=== PATIENT | female | born 1995 | race Caucasian/White ===

== ENCOUNTER 2020-05-07 16:15 | Emergency (ER) | payer SELFPAY ==
[~2020-05-07] VITALS: Ht 165.1 cm; Wt 61.7 kg
[2020-05-07 16:56] LABS: Basophils # (auto) 0 10 ^3/uL (0-0.2); Basophils % (auto) 0.4 % (0.0-2.0); Eosinophils # (auto) 0.1 10 ^3/uL (0-0.8); Eosinophils % (auto) 1.7 % (0.0-7.0); Hematocrit 35.2 % (36.0-46.0); Hemoglobin 11.3 g/dL (12.2-16.2); Lymphocytes % (auto) 27.5 % (10.0-50.0); Mean Corpuscular Hemoglobin 25.7 pg (28.0-32.0); Mean Corpuscular Hgb Conc. 32.1 g/dL (32.0-36.0); Monocytes # (auto) 0.5 10 ^3/uL (0-1.3); Monocytes % (auto) 6.2 % (0.0-12.0); Neutrophils # (auto) 4.8 10 ^3/uL (1.6-8.6); Neutrophils % (auto) 64.2 % (37.0-80.0); Nucleated Red Blood Cells % 0.1 %; Platelet Count (auto) 263 10^3/uL (140-450); White Blood Cell 7.4 10^3/uL (4.4-10.8)
[2020-05-07 21:28] LABS: Urine Bacteria FEW /hpf (None Seen); Urine Blood 3+ /uL (Negative); Urine Mucus FEW (None Seen); Urine Specific Gravity 1.009 (1.001-1.035); Urine Sperm PRESENT /hpf (None Seen); Urine WBC 55 /hpf (0 - 5); Urine WBC Clumps PRESENT /hpf (None Seen)
[2020-05-07 22:46] VITALS: BP 122/71
== END 2020-05-07 22:47 | disposition home or self-care (01) ==
LOC: ER 16:15
DX: O20.0 Threatened abortion (principal)
CPT/HCPCS: 36415; 76801; 81001; 84702; 85025

== ENCOUNTER 2021-10-17 19:14 | Observation (INO) | payer MEDICAID ==
[~2021-10-17] VITALS: Ht 165.1 cm; Wt 70.8 kg
[2021-10-17] MEDS ORDERED: LACTATED RINGER'S 1,000 ML IV ONE (19:45)
[2021-10-17 20:10] LABS: Urine Bacteria NONE SEEN /hpf (None Seen); Urine Blood 2+ /uL (Negative); Urine Hyaline Cast FEW /lpf (0 - 2); Urine Mucus FEW (None Seen); Urine Specific Gravity 1.033 (1.001-1.035); Urine WBC 1 /hpf (0 - 5)
[2021-10-17 20:23] LABS: Basophils # (auto) 0 10 ^3/uL (0-0.2); Basophils % (auto) 0.4 % (0.0-2.0); Eosinophils # (auto) 0.1 10 ^3/uL (0-0.8); Eosinophils % (auto) 1.4 % (0.0-7.0); Hematocrit 34.4 % (36.0-46.0); Hemoglobin 11.9 g/dL (12.2-16.2); Lymphocytes # (auto) 1.7 10 ^3/uL (0.4-5.4); Lymphocytes % (auto) 23.8 % (10.0-50.0); Mean Corpuscular Hemoglobin 30.3 pg (28.0-32.0); Mean Corpuscular Hgb Conc. 34.4 g/dL (32.0-36.0); Mean Corpuscular Volume 87.9 fL (80.0-100.0); Monocytes # (auto) 0.5 10 ^3/uL (0-1.3); Monocytes % (auto) 6.9 % (0.0-12.0); Neutrophils # (auto) 4.9 10 ^3/uL (1.6-8.6); Neutrophils % (auto) 67.5 % (37.0-80.0); Red Blood Cells 3.92 10^6/uL (4.0-5.20); White Blood Cell 7.3 10^3/uL (4.4-10.8)
[2021-10-17 20:37] LABS: INR 0.94 (0.9-1.15); Partial Thromboplastin Time 27.1 sec (23.6-33.0)
[2021-10-17 20:46] LABS: Albumin 2.9 g/dL (3.4-5.0); Calcium 8.6 mg/dL (8.5-10.1); Potassium 3.9 mmol/L (3.5-5.1)
[2021-10-17 20:48] LABS: BUN/Creatinine Ratio 19.2
[2021-10-17 20:50] LABS: Alcohol, Urine < 3.0 mg/dL (0-10); Amphetamine Screen, Urine NEGATIVE (NEGATIVE); Barbiturate Scree,Urine NEGATIVE (NEGATIVE); Benzodiazephine Screen, Urine NEGATIVE (NEGATIVE); Cannabinoid Screen, Urine POSITIVE (NEGATIVE); Cocaine Screen, Urine NEGATIVE (NEGATIVE); Opiate Scree,Urine NEGATIVE (NEGATIVE); Phencyclidine Screen, Urine NEGATIVE (NEGATIVE)
[2021-10-17 20:51] LABS: Bilirubin, Total 0.5 mg/dL (0.2-1.0); Total Protein 6.1 g/dL (6.4-8.2)
[2021-10-17] MEDS: LACTATED RINGER'S 1,000 ML IV SCH ×2 (21:13→22:05)
[2021-10-19 08:06] LABS: RPR Non Reactive (Non Reactive)
== END 2021-10-17 22:34 | disposition home or self-care (01) ==
LOC: LDRP 19:14
PROVIDERS: ADMIT Obstetrics & Gynecology; ATTEND Obstetrics & Gynecology
DX: O46.92 Antepartum hemorrhage, unspecified, second trimester (principal); Z20.822 Contact with and (suspected) exposure to COVID-19; O26.852 Spotting complicating pregnancy, second trimester; O62.9 Abnormality of forces of labor, unspecified; Z3A.22 22 weeks gestation of pregnancy; Z79.899 Other long term (current) drug therapy; Z98.890 Other specified postprocedural states
CPT/HCPCS: 36415; 59025; 76805; 80053; 80307; 81001; 81002; 85025; 85610; 85730; 86592; 86850; 86900; 86901; 87426; 94760; 96360; 96361; G0378; G0379

== ENCOUNTER 2021-11-10 17:58 | Observation (INO) | payer MEDICAID ==
[~2021-11-10] VITALS: Ht 162.6 cm; Wt 73.9 kg
[2021-11-10] MEDS ORDERED: ACETAMINOPHEN 325 MG TAB PO ONE (20:15)
== END 2021-11-10 21:23 | disposition home or self-care (01) ==
LOC: LDRP 17:58
PROVIDERS: ADMIT Obstetrics & Gynecology Obstetrics; ATTEND Obstetrics & Gynecology Obstetrics
DX: O26.892 Other specified pregnancy related conditions, second trimester (principal); Z20.822 Contact with and (suspected) exposure to COVID-19; R42 Dizziness and giddiness; R51.9 Headache, unspecified; O99.891 Other specified diseases and conditions complicating pregnancy; M54.9 Dorsalgia, unspecified; O21.2 Late vomiting of pregnancy; Z3A.26 26 weeks gestation of pregnancy
CPT/HCPCS: 36415; 59025; 81002; 87426; G0378; G0379; U0003

== ENCOUNTER 2021-12-05 13:40 | Observation (INO) | payer MEDICAID | END 2021-12-05 16:35 | disposition home or self-care (01) | LOC: LDRP 13:40 | PROVIDERS: ADMIT Obstetrics & Gynecology; ATTEND Obstetrics & Gynecology | DX: O36.8130 Decreased fetal movements, third trimester, not applicable or unspecified (principal); O99.323 Drug use complicating pregnancy, third trimester; F12.90 Cannabis use, unspecified, uncomplicated; Z3A.29 29 weeks gestation of pregnancy; Z87.891 Personal history of nicotine dependence | CPT/HCPCS: 59025; 81002; 94760; G0378 ==

== ENCOUNTER 2022-01-06 11:35 | Observation (INO) | payer MEDICAID ==
[~2022-01-06] VITALS: Ht 162.6 cm; Wt 81.2 kg
[2022-01-06] MEDS ORDERED: PREN-96 PO (12:03)
[2022-01-06] MEDS ORDERED: NIF10C GT (12:03)
[2022-01-06] MEDS ORDERED: FERR-7 PO (12:04)
== END 2022-01-06 12:37 | disposition home or self-care (01) ==
LOC: LDRP 11:35
PROVIDERS: ADMIT Obstetrics & Gynecology; ATTEND Obstetrics & Gynecology
DX: O60.03 Preterm labor without delivery, third trimester (principal); Z3A.34 34 weeks gestation of pregnancy
CPT/HCPCS: 59025; 81002; G0378

== ENCOUNTER 2022-01-13 08:21 | Observation (INO) | payer MEDICAID ==
[~2022-01-13] VITALS: Ht 162.6 cm; Wt 81.2 kg
[~2022-01-13 08:21] MED LIST: FERR-7 PO; NIF10C PO; PREN-96 PO
== END 2022-01-13 12:43 | disposition home or self-care (01) ==
LOC: LDRP 11:25
PROVIDERS: ADMIT Obstetrics & Gynecology; ATTEND Obstetrics & Gynecology
DX: O60.03 Preterm labor without delivery, third trimester (principal); O99.323 Drug use complicating pregnancy, third trimester; F12.90 Cannabis use, unspecified, uncomplicated; Z3A.35 35 weeks gestation of pregnancy; Z87.891 Personal history of nicotine dependence
CPT/HCPCS: 59025; 81002; 94760; G0378

== ENCOUNTER 2022-01-21 08:37 | Observation (INO) | payer MEDICAID | END 2022-01-21 09:31 | disposition home or self-care (01) | LOC: LDRP 08:37 | PROVIDERS: ADMIT Obstetrics & Gynecology; ATTEND Obstetrics & Gynecology | DX: O60.03 Preterm labor without delivery, third trimester (principal); Z3A.36 36 weeks gestation of pregnancy | CPT/HCPCS: 59025; 81002; 94760; G0378 ==

== ENCOUNTER 2022-02-16 07:51 | Observation (INO) | payer MEDICAID | END 2022-02-16 12:23 | disposition home or self-care (01) | LOC: LDRP 10:45 | PROVIDERS: ADMIT Obstetrics & Gynecology; ATTEND Obstetrics & Gynecology | DX: O48.0 Post-term pregnancy (principal); O62.9 Abnormality of forces of labor, unspecified; Z3A.40 40 weeks gestation of pregnancy | CPT/HCPCS: 59025; 76818; 81002; 94760; G0378 ==

== ENCOUNTER 2022-02-18 10:31 | Observation (INO) | payer MEDICAID ==
[~2022-02-18] VITALS: Ht 165.1 cm; Wt 86.2 kg
[~2022-02-18 10:31] MED LIST changes: -NIF10C PO
== END 2022-02-18 12:36 | disposition home or self-care (01) ==
LOC: OB 10:31 → EDSTATUS 10:38 → LDRP 11:35
PROVIDERS: ADMIT Obstetrics & Gynecology; ATTEND Obstetrics & Gynecology
DX: O48.0 Post-term pregnancy (principal); Z3A.40 40 weeks gestation of pregnancy
CPT/HCPCS: 59025; 76818; 81002; G0378

== ENCOUNTER 2022-02-20 07:23 | Inpatient (IN) | payer MEDICAID ==
[~2022-02-20] VITALS: Ht 165.1 cm; Wt 86.2 kg
[2022-02-20] MEDS ORDERED: PROMETHAZINE HCL 25 MG/ML 1ML IV PRN (11:45)
[2022-02-20] MEDS ORDERED: BUTORPHANOL TARTRATE 2 MG/1 ML VIAL IV PRN ×2 (11:45)
[2022-02-20] MEDS ORDERED: LIDOCAINE 2%HCL (LOCAL ANESTH.) INJ 10ml MDV IJ PRN (11:45)
[2022-02-20] MEDS ORDERED: LACTATED RINGER'S 1,000 ML IV SCH (11:45)
[2022-02-20 12:13] LABS: Basophils # (auto) 0 10 ^3/uL (0-0.2); Basophils % (auto) 0.3 % (0.0-2.0); Eosinophils # (auto) 0.1 10 ^3/uL (0-0.8); Eosinophils % (auto) 0.8 % (0.0-7.0); Hematocrit 38.4 % (36.0-46.0); Hemoglobin 13.3 g/dL (12.2-16.2); Lymphocytes # (auto) 1.7 10 ^3/uL (0.4-5.4); Lymphocytes % (auto) 20.3 % (10.0-50.0); Mean Corpuscular Hemoglobin 31.3 pg (28.0-32.0); Mean Corpuscular Hgb Conc. 34.5 g/dL (32.0-36.0); Mean Corpuscular Volume 90.5 fL (80.0-100.0); Monocytes # (auto) 0.7 10 ^3/uL (0-1.3); Monocytes % (auto) 8.7 % (0.0-12.0); Neutrophils # (auto) 5.8 10 ^3/uL (1.6-8.6); Neutrophils % (auto) 69.9 % (37.0-80.0); Nucleated Red Blood Cells % 0.1 %; Red Blood Cells 4.25 10^6/uL (4.0-5.20); Red Cell Distribution Width 13.4 % (11.8-14.3); White Blood Cell 8.3 10^3/uL (4.4-10.8)
[2022-02-20 12:27] LABS: Urine Bacteria FEW /hpf (None Seen); Urine Blood Negative /uL (Negative); Urine Mucus FEW (None Seen); Urine Specific Gravity 1.026 (1.001-1.035); Urine WBC 1 /hpf (0 - 5)
[2022-02-20 12:28] LABS: INR 0.92 (0.9-1.15); Partial Thromboplastin Time 25.8 sec (23.6-33.0)
[2022-02-20 12:34] LABS: Albumin 2.7 g/dL (3.4-5.0); Calcium 9.2 mg/dL (8.5-10.1); Potassium 3.8 mmol/L (3.5-5.1)
[2022-02-20 12:39] LABS: Alcohol, Urine < 3.0 mg/dL (0-10); Amphetamine Screen, Urine NEGATIVE (NEGATIVE); Barbiturate Scree,Urine NEGATIVE (NEGATIVE); Benzodiazephine Screen, Urine NEGATIVE (NEGATIVE); Cannabinoid Screen, Urine NEGATIVE (NEGATIVE); Cocaine Screen, Urine NEGATIVE (NEGATIVE); Opiate Scree,Urine NEGATIVE (NEGATIVE); Phencyclidine Screen, Urine NEGATIVE (NEGATIVE)
[2022-02-20 12:39] LABS: BUN/Creatinine Ratio 17.7; Bilirubin, Total 0.8 mg/dL (0.2-1.0); Total Protein 6.8 g/dL (6.4-8.2)
[2022-02-20] MEDS: miSOPROStol 50 MCG per PRE-CUT 1/2 TAB PO PRN ×3 (13:05→21:09)
[2022-02-20] MEDS ORDERED: LACT. RINGERS/OXYTOCIN 20UNITS 500 ML IV ONE ×2 (18:00→18:30)
[2022-02-20] MEDS ORDERED: ROPIVACAINE HCL 200 ML EPI SCH (23:45)
[2022-02-20] MEDS ORDERED: fentaNYL CITRATE 100 MCG/2 ML VL IV ONE (23:45)
[2022-02-20] MEDS ORDERED: ePHEDrine SULFATE 50 MG/ML AMP IV ONE (23:45)
[2022-02-20] MEDS ORDERED: NALOXONE HCL 0.4 MG/ML VIAL IV ONE (23:45)
[2022-02-21 03:00] VITALS: BP 106/55
[2022-02-21] MEDS ORDERED: ONDANSETRON ODT 4 MG TAB PO PRN (03:15)
[2022-02-21] MEDS: DERMOPLAST 60ML BOTTLE TOP PRN ×3 (03:20→21:37)
[2022-02-21] MEDS: WITCH HAZEL-GLYCERIN PAD TOP PRN ×3 (03:21→21:37)
[2022-02-21] MEDS: PHISODERM TOP SOLN 240ML BTL TOP PRN ×2 (03:21→21:37)
[2022-02-21 06:06] LABS: RPR Non Reactive (Non Reactive)
[2022-02-21 07:00] VITALS: BP 118/65
[2022-02-21] MEDS: IBUPROFEN 600 MG TAB PO PRN ×3 (07:43→21:38)
[2022-02-21 11:00] VITALS: BP 101/55
[2022-02-21 15:00] VITALS: BP 116/60
[2022-02-21 19:20] VITALS: BP 113/65
[2022-02-21] MEDS: ACETAMINOPHEN 325 MG TAB PO PRN (20:01)
[2022-02-21] MEDS ORDERED: DOCUSATE SOD 100 MG CAP PO SCH (22:00)
[2022-02-21 23:15] VITALS: BP 110/62
[2022-02-22] MEDS: ACETAMINOPHEN 325 MG TAB PO PRN ×2 (01:28→06:44)
[2022-02-22 03:00] VITALS: BP_SYST 113; BP_SYST 97; BP_DIAS 54; BP_DIAS 65
[2022-02-22] MEDS: IBUPROFEN 600 MG TAB PO PRN ×2 (05:38→11:29)
[2022-02-22 06:30] VITALS: BP 115/59
[2022-02-22 10:52] VITALS: BP 117/58
== END 2022-02-22 11:45 | disposition home or self-care (01) | DRG 560 ==
LOC: LDRP 11:04 → OBSVTOIN 11:05
PROVIDERS: ADMIT Obstetrics & Gynecology; ATTEND Obstetrics & Gynecology
PROC: 3E0P7VZ Introduction of Hormone into Female Reproductive, Via Natural or Artificial Opening (ICD-10-PCS; 2022-02-20)
PROC: 3E0DXGC Introduction of Other Therapeutic Substance into Mouth and Pharynx, External Approach (ICD-10-PCS; 2022-02-20)
PROC: 10E0XZZ Delivery of Products of Conception, External Approach (ICD-10-PCS; principal; 2022-02-21)
PROC: 0HQ9XZZ Repair Perineum Skin, External Approach (ICD-10-PCS; 2022-02-21)
DX: O48.0 Post-term pregnancy (principal); Z37.0 Single live birth; O70.0 First degree perineal laceration during delivery; Z20.822 Contact with and (suspected) exposure to COVID-19
CPT/HCPCS: 36415; 59025; 59409; 80053; 80307; 81001; 81002; 85025; 85610; 85730; 86592; 86850; 86900; 86901; 94760; 96360; 96361; 96365; 96366; G0378; J2001; J2590

== ENCOUNTER 2025-01-07 12:44 | Observation (INO) | payer MEDICAID ==
[~2025-01-07] VITALS: Ht 165.1 cm; Wt 90.7 kg
[2025-01-07 14:04] LABS: Fern Testing Negative
--- NOTE | 2025-01-07 14:28 | DVHDS2 ---
Physician Discharge Progress N Final Diagnosis: Term IUP False labor SROM not found Operations or Procedures: Operations or Procedures NST Spec exam, no pooling, no evidence of SROM Fern, amnisure tests both negative Condition on Discharge: Stable Disposition: Home Discharge Instructions: Diet: Regular Activity: No Restrictions, As Tolerated Follow Up/Referral: PRN Medications: N/A Follow Up Care: Discharge Statement: "Patient was advised to return to the ER or call 911 if any headaches, dizzines s, shortness of breath, chest pain, abdominal pain, bleeding, fevers, or worsening of medical condition. Patient was counseled about treatment plan, medications, possible side effects, patientverbalized understanding. All questions were answered to the best of my ability. This discharge took greater then 30 minutes in planning, reviewing documentation, counseling the patient, and discussing with other team members." Visit Coding OBGYN Date of Service: Jan 07, 2025 Billing Provider: SEJAL LAZCANO DO ROLLER STAKER Common Visit Codes: 30929-YHP/OBS SAME DATE (MOD) ROLLER STAKER Procedure Codes: 05845-46- NON-STRESS TEST SEJAL LAZCANO DO Jan 07, 2025 14:28
== END 2025-01-07 14:21 | disposition home or self-care (01) ==
LOC: LDRP 12:44
PROVIDERS: ADMIT Obstetrics & Gynecology; ATTEND Obstetrics & Gynecology
DX: O47.1 False labor at or after 37 completed weeks of gestation (principal); Z98.890 Other specified postprocedural states; Z79.899 Other long term (current) drug therapy; Z3A.39 39 weeks gestation of pregnancy
CPT/HCPCS: 59025; 81002; 84112; G0378; Q0114

== ENCOUNTER 2025-01-11 23:00 | Inpatient (IN) | payer MEDICAID ==
[~2025-01-11] VITALS: Ht 162.6 cm; Wt 89.8 kg
[2025-01-11] MEDS ORDERED: LIDOCAINE 2%HCL (LOCAL ANESTH.) INJ 20ML MDV IJ PRN (23:15)
[2025-01-11] MEDS ORDERED: NALBUPHINE HCL 10 MG/1ml INJECTION IV PRN (23:15)
[2025-01-11] MEDS ORDERED: NALBUPHINE HCL 10 MG/1ml INJECTION IM PRN (23:15)
--- NOTE | 2025-01-11 23:26 | DVHHP2 ---
OB CC & HPI Date Date of Admission: Jan 11, 2025 Patient Identification: : 4 Para: 2 EDC: Jan 12, 2025 EGA: 39.6 weeks Chief Complaints: Reason for admission: induction of labor Indication for induction: other (elective) Admission Nurse Assessment Rev: Yes History of Present Complaints 29yo IUP @39.6 weeks presents to labor and delivery for elective induction of labor. Reports irregular contractions, denies LOF, VB, and endorses +FM. Deneis NEWMAN/ blurry vision/ RUQ pain. PNC: Routine PNC at [facility], dating based on LMP c/w 9 wk US, GBS positive, GTT WNL Past Medical History Cardiac: No pertinent Hx Pulmonary: No pertinent Hx Central Nervous System: No pertinent Hx GI: No pertinent Hx Hemotology/Oncology: No pertinent Hx Hepatobiliary: No pertinent Hx Psychiatric: No pertinent Hx Musculoskeletal: No pertinent Hx Rheumotologic: No pertinent Hx Infectious Disease: No peritnent Hx ENT: No pertinent Hx Renal/: No pertinent Hx Endocrine: No pertinent Hx Dermatology: No pertinent Hx Past Surgical History: Appendectomy OB History OB History Care: Good Care Ultrasounds: Normal mid trimester US Obstetrical Complications: None Medical Complications: None Allergies: Coded Allergies: NO KNOWN ALLERGIES (Unverified , 01/13/22) Allergies NKDA Home Meds Reported Medications Ferrous Sulfate (Iron) 325 Mg Tab, 325 MG PO TID, TAB 01/06/22 Vit W/ Ferrous Fumara ( One Daily) Daily Tab, 1 TAB PO DAILY, #90 TAB 3 Refills 01/06/22 Home Meds PNV Current Medications Current Medications Medications (Trade) Dose Ordered Sig/Amy Route PRN Reason Start Time Stop Time Status Last Admin Lactated Ringer's 1,000 ml @ 125 mls/hr Q8H IV 01/11/25 23:15 UNV Nalbuphine HCl (Nubain) 10 mg Q4HP PRN IM MODERATE PAIN (4-6 PAIN SCALE) 01/11/25 23:15 UNV Nalbuphine HCl (Nubain) 10 mg Q4HP PRN IV MODERATE PAIN (4-6 PAIN SCALE) 01/11/25 23:15 UNV Penicillin G Potassium 1018350 units/Dextrose 50 ml @ 100 mls/hr Q4H IV 01/12/25 03:15 UNV Witch Lynda (Tucks) 1 pad PRN PRN TOP PERINEAL AREA DISCOMFORT 01/11/25 23:15 UNV Sodium Lauryl Sulfate (Phisoderm) 240 ml PRN PRN TOP PERINEAL AREA DISCOMFORT 01/11/25 23:15 UNV Benzocaine (Dermoplast) 1 applic PRN PRN TOP PERINEAL AREA DISCOMFORT 01/11/25 23:15 UNV Lidocaine HCl (Xylocaine) 20 ml ONCE PRN IJ PERINEAL AREA DISCOMFORT 01/11/25 23:15 UNV Family & Social History Family/Social History Past Family/Social History: Paternal uncle: DM type 2 Blood Type: O+ Rubella: not immune RPR/VDRL: Negative GBS Status: Positive HBsAG: Negative Review of Systems Constitutional: No symptom reported Ears, Nose, & Throat: No symptom reported Eyes: No symptom reported Pulmonary/Respiratory: No symptom reported Cardiovascular: No symptom reported Gastrointestinal: No symptom reported Genitourinary: No symptom reported Musculoskeletal: No symptom reported Skin: No symptom reported Psychiatric: No symptom reported Endocrine: No symptom reported Hemotologic/Lymphatic: No symptom reported OB Admission Exam Physical Exam Vitals: VSS See chart HEENT: TMs Normal, Fontanelles Normal, Nasal Mucosa Normal, Eyes non-injected, Oropharynx Normal, PERRLA, Moist Membranes, EOMI Heart: Rhythm Normal Lungs: Clear Abdomen: Gravid Extremities: Normal Reflexes: Normal Cervical Dilatation: 4cm Effacement: Other (60%) Station: -2 Membranes: Intact Heart Rate: 120's Accelerations: Accelerations Present Decelerations: No Decelerations Short Term Variability: Present Carpentry Supervisor Variability: Average (6-25) Contractions on Admission: < 5 Minutes Apart (2-5) Date/Time Contractions Began: 01/11/2025 Frequency of Contractions: 2-5 Duration: 40-60 Intensity: Mild OB Plan Plan Admitting Diagnosis: 29 yo IUP 39.6 weeks Induction of labor- elective Category I EFM tracing Intact membranes GBS positive Plan: Induction, Other (Roberts balloon then pitocin per protocol) Other Plan: CNM consulted Dr. Hopper, admit to L&D for eIOL Informed consent obtained Discussed risks, benefits, alternatives of IOL with pt. Pt consents to IOL with roberts balloon then when it falls out to begin IV pitocin per protocol monitoring per order Routine labs ordered Start IV PCN once in active labor or SROM Pain mgmt PRN Frequent position changes in and out of bed encouraged Limit SVE unless necessary Intrauterine resuscitation PRN Anticipate Visit Coding OBGYN Date of Service: Jan 11, 2025 Billing Provider: ELY GOMEZ CNM RN BABY Common Visit Codes: 84833-UVFECGL INP/OBS CARE (MOD) DORIAN SHER MDWF Jan 11, 2025 23:26
[2025-01-11 23:39] LABS: Basophils # (auto) 0 10 ^3/uL (0-0.2); Basophils % (auto) 0.2 % (0.0-2.0); Eosinophils # (auto) 0.1 10 ^3/uL (0-0.8); Eosinophils % (auto) 0.7 % (0.0-7.0); Hematocrit 32.3 % (36.0-46.0); Hemoglobin 11.2 g/dL (12.2-16.2); Lymphocytes # (auto) 2.1 10 ^3/uL (0.4-5.4); Lymphocytes % (auto) 25.1 % (10.0-50.0); Mean Corpuscular Hemoglobin 28.8 pg (28.0-32.0); Mean Corpuscular Hgb Conc. 34.8 g/dL (32.0-36.0); Mean Corpuscular Volume 82.9 fL (80.0-100.0); Monocytes # (auto) 0.5 10 ^3/uL (0-1.3); Monocytes % (auto) 6.4 % (0.0-12.0); Neutrophils # (auto) 5.8 10 ^3/uL (1.6-8.6); Neutrophils % (auto) 67.6 % (37.0-80.0); Nucleated Red Blood Cells % 0.1 %; Platelet Count (auto) 190 10^3/uL (140-450); Red Blood Cells 3.89 10^6/uL (4.0-5.20); Red Cell Distribution Width 14.1 % (11.8-14.3); White Blood Cell 8.5 10^3/uL (4.4-10.8)
[2025-01-11] MEDS: LACTATED RINGER'S 1,000 ML IV SCH (23:43)
[2025-01-11 23:51] LABS: Alanine Aminotransferase 14 U/L (7-40); Albumin 4.2 g/dL (3.2-4.8); Anion Gap 10 (5-15); Aspartate Aminotransferase 26 U/L (13-40); BUN/Creatinine Ratio 14.9 (10.0-20.0); Blood Urea Nitrogen 10 mg/dL (9-23); Calcium 9.7 mg/dL (8.7-10.4); Carbon Dioxide 20 mmol/L (20-31); Glucose 93 mg/dL (74-106); Potassium 3.9 mmol/L (3.5-5.1); Sodium 138 mmol/L (136-145)
[2025-01-11 23:52] LABS: Bilirubin, Total 0.8 mg/dL (0.2-1.0)
[2025-01-11 23:59] LABS: INR 0.9 (0.9-1.15); Partial Thromboplastin Time 27.1 SEC (24.5-34.5); Prothrombin Time 9.6 sec (9.3-11.8)
[2025-01-12 00:01] LABS: Alkaline Phosphatase 182 U/L (46-116); Chloride 108 mmol/L (98-107)
[2025-01-12 00:33] LABS: Barbiturate Scree,Urine Neg (NEGATIVE); Opiate Scree,Urine Neg (NEGATIVE); Phencyclidine Screen, Urine Neg (NEGATIVE)
[2025-01-12 00:34] LABS: Amphetamine Screen, Urine Neg (NEGATIVE); Benzodiazephine Screen, Urine Neg (NEGATIVE); Cannabinoid Screen, Urine Neg (NEGATIVE); Cocaine Screen, Urine Neg (NEGATIVE)
[2025-01-12 00:47] LABS: Urine Bacteria FEW /hpf (None Seen); Urine Blood Negative /uL (Negative); Urine Clarity Clear (Clear); Urine Color Light-Yellow (Yellow); Urine Protein, UAD Negative (Negative); Urine Specific Gravity 1.014 (1.001-1.035); Urine Squamous Epithelial Cell FEW /hpf (<5); Urine Urobilinogen Normal (Negative); Urine WBC 1 /HPF (0-5); Urine pH 6.5 (5.0-9.0)
[2025-01-12] MEDS: PENICILLIN G POT 5MIL/D5 50ML 50 ML IV ONE (01:17)
[2025-01-12] MEDS: DERMOPLAST 60ML BOTTLE TOP PRN (01:17)
[2025-01-12] MEDS: WITCH HAZEL-GLYCERIN PAD TOP PRN (01:17)
[2025-01-12] MEDS: PHISODERM TOP SOLN 240ML BTL TOP PRN (01:17)
[2025-01-12] MEDS: PENICILLIN G POTASSIUM 2,500,000 UNITS in D5W 5% 50 ML IV SCH (04:53)
[2025-01-12] MEDS: LACT. RINGERS/OXYTOCIN 20UNITS 1,000 ML IV SCH (05:20)
--- NOTE | 2025-01-12 07:53 | DVHPN2 ---
Chief Complaints Patient reports: No new complaints Nursing reports: No new complaints Objective Medications Current Medications Medications (Trade) Dose Ordered Sig/Amy Route PRN Reason Start Time Stop Time Status Last Admin Benzocaine (Dermoplast) 1 applic PRN PRN TOP PERINEAL AREA DISCOMFORT 01/11/25 23:15 01/12/25 01:17 Lactated Ringer's 1,000 ml @ 125 mls/hr Q8H IV 01/11/25 23:15 01/11/25 23:43 Lidocaine HCl (Xylocaine) 20 ml ONCE PRN IJ PERINEAL AREA DISCOMFORT 01/11/25 23:15 Nalbuphine HCl (Nubain) 10 mg Q4HP PRN IM MODERATE PAIN (4-6 PAIN SCALE) 01/11/25 23:15 Nalbuphine HCl (Nubain) 10 mg Q4HP PRN IV MODERATE PAIN (4-6 PAIN SCALE) 01/11/25 23:15 Oxytocin 1,000 ml @ 6 ml/hr Q24H IV 01/12/25 01:15 01/12/25 05:20 Penicillin G Potassium 5123360 units/Dextrose 50 ml @ 100 mls/hr Q4H IV 01/12/25 03:15 01/12/25 04:53 Sodium Lauryl Sulfate (Phisoderm) 240 ml PRN PRN TOP PERINEAL AREA DISCOMFORT 01/11/25 23:15 01/12/25 01:17 Witch Lynda (Tucks) 1 pad PRN PRN TOP PERINEAL AREA DISCOMFORT 01/11/25 23:15 01/12/25 01:17 Others ve-6cm/60/-2 Studies Laboratory Tests 01/11/25 23:22 Test 01/11/25 23:22 Range/Units Serum Glucose 93 74-106 mg/dL Ass/Plan Assessment labor Plan cont with pitocin Visit Coding OBGYN Date of Service: Jan 12, 2025 Billing Provider: MATILDE NICHOLE DO SEWER PIPE OFFBEARER Common Visit Codes: [id number] INP/OBS CARE(HIGH), 53183-GRL/OBS SAME DATE (HIGH) SEWER PIPE OFFBEARER Procedure Codes: 12691-91- NON-STRESS TEST MATILDE NICHOLE DO Jan 12, 2025 07:53
--- NOTE | 2025-01-12 13:51 | LDN2 ---
Labor and Delivery Note Date 01/12/25 Age 29 4 Para 3 AB 1 EDC 3- EGA 39wks Diagnosis iol Vaginal Delivery: VTX Vacuum Assisted: No Placenta: Spontaneous Sex: Male Apgars 9-9 Nuchal Cord Transected: Yes Amniotic Fluid: Clear Anesthesia epidural Episiotomy: No Extension: No EBL 300ml Labs Blood Bank 01/11/25 23:22: Blood Type O POSITIVE Complications none Conditions stable Comments/Significant Med Ravi spec exam no cxal lac Visit Coding OBGYN Date of Service: Jan 12, 2025 Billing Provider: MATILDE NICHOLE DO AGRICULTURAL CONSULTANT Common Visit Codes: 24203-FUD/OBS SAME DATE (HIGH) AGRICULTURAL CONSULTANT Procedure Codes: 78099-LTZ DELIVERY ONLY MATILDE NICHOLE DO Jan 12, 2025 13:51
[2025-01-12] MEDS: LACT. RINGERS/OXYTOCIN 20UNITS 500 ML IV ONE ×2 (17:21→17:22)
[2025-01-12] MEDS: ROPIVACAINE HCL 200 ML ONE (17:23)
[2025-01-12 19:00] VITALS: BP 132/74; PULSE 95; RESP 18; TEMP 98.1; O2SAT 98
[2025-01-12] MEDS: IBUPROFEN 600 MG TAB PO PRN (20:02)
[2025-01-12 23:00] VITALS: BP 119/79; PULSE 82; RESP 16; TEMP 98; O2SAT 98
[2025-01-12] MEDS: ACETAMINOPHEN 325 MG TAB PO PRN (23:07)
[2025-01-13 03:00] VITALS: RESP 15
[2025-01-13 07:00] VITALS: BP 131/82; PULSE 76; RESP 16; TEMP 98.1; O2SAT 98
[2025-01-13 11:04] VITALS: BP 129/67; PULSE 82; RESP 16; TEMP 97.9; O2SAT 98
--- NOTE | 2025-01-13 11:16 | DVHPN2 ---
Chief Complaints Patient reports: No new complaints Nursing reports: No new complaints Objective Vitals Vital Signs Date Time Temp Pulse Resp B/P (MAP) Pulse Ox O2 Delivery O2 Flow Rate FiO2 01/13/25 11:04 97.9 82 16 129/67 (87) 98 97.9 01/13/25 07:00 Room Air Medications Current Medications Medications (Trade) Dose Ordered Sig/Amy Route PRN Reason Start Time Stop Time Status Last Admin Acetaminophen (Tylenol Tablet) 650 mg Q4HP PRN PO MILD PAIN (1-3 PAIN SCALE) 01/12/25 16:15 01/13/25 10:34 Ibuprofen (Motrin Tablet) 600 mg Q6HP PRN PO MODERATE PAIN (4-6 PAIN SCALE) 01/12/25 16:15 01/13/25 05:41 General: Normal Lungs: Normal Cardiovascular: Normal Abdominal: Soft Extremities: Normal Studies Laboratory Tests 01/11/25 23:22 Test 01/11/25 23:22 Range/Units Serum Glucose 93 74-106 mg/dL Ass/Plan Assessment S/P Plan DC HOME FU IN 2WKS Visit Coding OBGYN Date of Service: Jan 13, 2025 Billing Provider: MATILDE NICHOLE DO SUPERVISING AIRPLANE PILOT Common Visit Codes: 57782-KHF/OBS DISCH DAY >30MIN SUPERVISING AIRPLANE PILOT Procedure Codes: 20704-GKN DELIVERY ONLY MATILDE NICHOLE DO Jan 13, 2025 11:16
--- NOTE | 2025-01-13 11:18 | DVHDS2 ---
Obstetrics Discharge Summary Obstetrics Discharge Summary Date of Admission: Jan 11, 2025 Date of Discharge: Jan 13, 2025 Reason For Admission: Induction of Labor Procedures: NST Intrapartum Procedures: Spontaneous vaginal deliv Procedures: None Operative Complicat: None Discharge Diagnosis: Term -Delivered Discharge Information: Activity (Other), Diet (Routine), Medications (None), Instructions (Routine), Discharge to (Home), Discarge date (01-13) Visit Coding OBGYN Date of Service: Jan 13, 2025 Billing Provider: MATILDE NICHOLE DO NIPPLE MAKER Common Visit Codes: 96952-OVV/OBS DISCH DAY >30MIN NIPPLE MAKER Procedure Codes: 97153-YXE DELIVERY ONLY MATILDE NICHOLE DO Jan 13, 2025 11:18
== END 2025-01-13 14:52 | disposition home or self-care (01) | DRG 560 ==
LOC: LDRP 23:00
PROVIDERS: ADMIT Obstetrics & Gynecology; ATTEND Obstetrics & Gynecology
PROC: 10E0XZZ Delivery of Products of Conception, External Approach (ICD-10-PCS; principal; 2025-01-12)
PROC: 3E0R3BZ Introduction of Anesthetic Agent into Spinal Canal, Percutaneous Approach (ICD-10-PCS; 2025-01-12)
PROC: 00HU33Z Insertion of Infusion Device into Spinal Canal, Percutaneous Approach (ICD-10-PCS; 2025-01-12)
DX: O99.824 Streptococcus B carrier state complicating childbirth (principal); Z37.0 Single live birth; O69.81X0 Labor and delivery complicated by cord around neck, without compression, not applicable or unspecified; Z3A.39 39 weeks gestation of pregnancy
CPT/HCPCS: 36415; 59200; 59409; 62282; 80053; 80307; 81001; 81002; 85025; 85610; 85730; 86780; 86803; 86850; 86900; 86901; 94760; 94762; 96361; 96365; 96366; G0378; J2540; J2590; J7060